=== PATIENT | female | born 1985 | race American Indian/Alaskan Native ===

== ENCOUNTER 2016-09-06 19:57 | Emergency (ER) | payer OTHER ==
[2016-09-06 21:12] LABS: Basophils % (Auto) 0.9 % (0.0-1.8); Eosinophils % (Auto) 1.8 % (0.0-4.3); Hematocrit 32.4 % (30.3-42.9); Hemoglobin 10.2 gm/dl (10.1-14.3); Mean Corpuscular HGB Conc 31 % (30-34); Mean Corpuscular Volume 81 fl (79-97); Platelet Count 430 K/mm3 (140-440); Red Blood Count 3.99 M/mm3 (3.65-5.03); Red Cell Distribution Width 15.5 % (13.2-15.2); White Blood Count 9.4 K/mm3 (4.5-11.0)
[2016-09-06 21:18] LABS: Mean Corpuscular Hemoglobin 26 pg (28-32)
[2016-09-06 21:23] LABS: Bilirubin,Urine NEG (Negative); Blood,Urine NEG (Negative); Ketones,Urine TR mg/dL (Negative); Leukocyte Esterase,Urine SM (Negative); Mucus,Urine 3+ /HPF; Nitrite,Urine POS (Negative); Urobilinogen,Urine < 2.0 mg/dL (<2.0)
[2016-09-06 21:28] LABS: Alanine Aminotransferase 6 units/L (7-56); Albumin 4.1 g/dL (3.9-5); Alkaline Phosphatase 59 units/L (35-129); Anion Gap 18 mmol/L; BUN/Creatinine Ratio 11.66; Bilirubin,Total 0.2 mg/dL (0.1-1.2); Blood Urea Nitrogen 7 mg/dL (7-17); Calcium 9.1 mg/dL (8.4-10.2); Carbon Dioxide 25 mmol/L (22-30); Chloride 100.2 mmol/L (98-107); Glucose 85 mg/dL (65-100); Lipase 64 units/L (13-60); Potassium 3.6 mmol/L (3.6-5.0); Sodium 140 mmol/L (137-145); Total Protein 8.2 g/dL (6.3-8.2)
[2016-09-06] MEDS: TYLENOL PO ONE (22:11)
--- NOTE | 2016-09-06 22:38 | Emergency Department Report ---
ED Abdominal Pain HPI - General Chief Complaint: Abdominal Pain Stated Complaint: ABDOMINAL PAIN, ELEVATED BLOOD PRESSURE Time Seen by Provider: 09/06/16 22:25 Source: patient Mode of arrival: Ambulatory Limitations: No Limitations - History of Present Illness Initial Comments: This is a 31-year-old female who had an emergent 3 weeks ago due to preeclampsia. She reports being on metoprolol 50 mg twice a day as well as for also my post . She was given prescriptions for this at home as well. She was incarcerated shortly after this though and has not been on her blood pressure medications for the past week. She indicates that she is having some upper portion of her incision cause him discomfort today, more so with movements. She denies any significant bleeding vaginally. She is still having symptoms light lochia flow that she describes as brownish thin and and not malodorous. She denies fever she denies any new trauma. Patient does endorse some mild dysuria. MD Complaint: abdominal pain Onset/Timin -: days(s) Location: periumbilical Radiation: none Migration to: no migration Severity scale (0 -10): 5 Quality: other (dull) Improves With: rest Worsens With: nothing Associated Symptoms: denies: nausea, vomiting, diarrhea, fever - Related Data Previous Rx's Medication Instructions Recorded Last Taken Type Ibuprofen [Motrin 600 MG tab] 600 mg PO Q8H PRN #30 tablet 09/06/16 Unknown Rx Metoprolol/Hydrochlorothiazide 1 tab PO BID #60 tablet 09/06/16 Unknown Rx [Metoprolol HCTZ 50-25 mg TAB] Sulfamethoxazole/Trimethoprim 1 each PO BID #14 tablet 09/06/16 Unknown Rx [Bactrim DS TAB] Allergies Allergy/AdvReac Type Severity Reaction Status Date / Time No Known Allergies Allergy Verified 09/06/16 20:20 ED Review of Systems ROS: Stated complaint: ABDOMINAL PAIN, ELEVATED BLOOD PRESSURE Other details as noted in HPI Constitutional: denies: chills, fever Eyes: denies: eye pain, eye discharge, vision change ENT: denies: ear pain, throat pain Respiratory: denies: cough, shortness of breath, wheezing Cardiovascular: denies: chest pain, palpitations Endocrine: no symptoms reported Gastrointestinal: abdominal pain. denies: nausea, diarrhea Genitourinary: dysuria, discharge (nml lochia flow). denies: urgency Musculoskeletal: denies: back pain, joint swelling, arthralgia Skin: denies: rash, lesions Neurological: denies: headache, weakness, paresthesias Psychiatric: denies: anxiety, depression Hematological/Lymphatic: denies: easy bleeding, easy bruising ED Past Medical Hx - Past Medical History Previous Medical History?: No Hx Hypertension: Yes (pt bhad preeclampsia and was placed on labetalol and forosemide) - Surgical History Past Surgical History?: Yes Additional Surgical History: csection - Social History Smoking Status: Never Smoker Substance Use Type: None - Medications Home Medications: Home Medications Medication Instructions Recorded Confirmed Last Taken Type Ibuprofen [Motrin 600 MG tab] 600 mg PO Q8H PRN #30 tablet 09/06/16 Unknown Rx Metoprolol/Hydrochlorothiazide 1 tab PO BID #60 tablet 09/06/16 Unknown Rx [Metoprolol HCTZ 50-25 mg TAB] Sulfamethoxazole/Trimethoprim 1 each PO BID #14 tablet 09/06/16 Unknown Rx [Bactrim DS TAB] ED Physical Exam - General Limitations: No Limitations General appearance: alert, in no apparent distress - Head Head exam: Present: atraumatic, normocephalic - Eye Eye exam: Present: normal appearance - ENT ENT exam: Present: mucous membranes moist - Neck Neck exam: Present: normal inspection - Respiratory Respiratory exam: Present: normal lung sounds bilaterally. Absent: respiratory distress - Cardiovascular Cardiovascular Exam: Present: regular rate, normal rhythm. Absent: systolic murmur, diastolic murmur, rubs, gallop - GI/Abdominal GI/Abdominal exam: Present: soft, normal bowel sounds, other (well-healed longitudinal incision. No fluctuance no fluid collection appreciated. Mild tenderness noted at the upper aspect near the umbilicus. No rebound or guarding.). Absent: organomegaly - Extremities Exam Extremities exam: Present: normal inspection. Absent: tenderness - Back Exam Back exam: Present: normal inspection. Absent: CVA tenderness (R), CVA tenderness (L) - Neurological Exam Neurological exam: Present: alert, oriented X3 - Psychiatric Psychiatric exam: Present: normal affect, normal mood - Skin Skin exam: Present: warm, dry, intact, normal color. Absent: rash ED Course Vital Signs 09/06/16 20:21 Temperature 98.4 F Pulse Rate 83 Respiratory 16 Rate Blood Pressure 159/124 O2 Sat by Pulse 100 Oximetry - Reevaluation(s) Reevaluation #1: 09/06/16 22:43 Urinalysis is consistent with probable UTI. We will treat. She is symptomatic as well. In regards to the abdominal pain, it is right over the top portion of the incision. I suspect it's due to some adhesions, or scar tissue. I don't suspect a surgical complication or fluid collection. The description of the lochia flow sounds consistent with an appropriate period Garst or hypertension. I will start her back on her metoprolol. Rather than have her on the Lasix I will have him on hydrochlorothiazide. I feel this is a safer medication so she will not have to be taking potassium. I'm unsure of the length of time she will need to continue on the Toprol. I did do some literature search and appears to be usually either 6 weeks if asymptomatic or until blood pressure stays normal level on its own. My suspicion is she has some underlying essential hypertension as well. She does have mild proteinuria. I suspect this is more related to her UTI though. She looks quite well here. I do not suspect imminent eclampsia or preeclampsia Presentation. 09/06/16 22:45 ED Medical Decision Making - Lab Data Result diagrams: 09/06/16 20:37 09/06/16 20:37 Critical care attestation.: If time is entered above; I have spent that time in minutes in the direct care of this critically ill patient, excluding procedure time. ED Disposition Clinical Impression: Pain at surgical incision HTN (hypertension) Qualifiers: Hypertension type: unspecified secondary hypertension Qualified Code(s): I15.9 - Secondary hypertension, unspecified UTI (urinary tract infection) Qualifiers: Urinary tract infection type: acute cystitis Hematuria presence: without hematuria Qualified Code(s): N30.00 - Acute cystitis without hematuria Disposition: DISCHARGED TO HOME OR SELFCARE Is pt being admited?: No Does the pt Need Aspirin: No Condition: Stable Instructions: Urinary Tract Infection in Women (ED), Hypertension (ED) Prescriptions: Ibuprofen [Motrin 600 MG tab] 600 mg PO Q8H PRN #30 tablet PRN Reason: Pain Metoprolol/Hydrochlorothiazide [Metoprolol HCTZ 50-25 mg TAB] 1 tab PO BID #60 tablet Sulfamethoxazole/Trimethoprim [Bactrim DS TAB] 1 each PO BID #14 tablet Time of Disposition: 22:37
[2016-09-06] MEDS: MOTRIN PO ONE (22:51)
[2016-09-06 22:58] VITALS: BP 191/115
== END 2016-09-06 22:57 | disposition home or self-care (01) ==
LOC: ED 19:57 → EEVIPCON 19:57 → ED 22:57
DX: G89.18 Other acute postprocedural pain (principal); I15.9 Secondary hypertension, unspecified; N30.00 Acute cystitis without hematuria
CPT/HCPCS: 36415; 80053; 81001; 83690; 85025; 87086; 99283